=== PATIENT | female | born 1950 | race Caucasian/White ===

== ENCOUNTER 2017-07-29 13:39 | Outpatient (CLI) | payer OTHER ==
[~2017-07-29 13:39] MED LIST: ASA81 PO; FURO-149 PO; POTA20TA83 PO; SPIR25TA PO
== END 2017-07-29 17:13 | disposition home or self-care (01) ==
LOC: SMA 13:39
PROVIDERS: ATTEND Family Medicine
DX: Z12.31 Encounter for screening mammogram for malignant neoplasm of breast (principal)
CPT/HCPCS: G0202

== ENCOUNTER 2019-08-01 13:57 | Outpatient (CLI) | payer OTHER | END 2019-08-01 21:09 | disposition home or self-care (01) | LOC: SMA 13:57 | PROVIDERS: ATTEND Family Medicine | DX: Z12.31 Encounter for screening mammogram for malignant neoplasm of breast (principal) | CPT/HCPCS: 77067 ==

== ENCOUNTER → 2020-12-19 | Outpatient (CLI) | payer OTHER | END | disposition home or self-care (01) | LOC: SMA 10:00 | PROVIDERS: ATTEND Family Medicine | DX: Z12.31 Encounter for screening mammogram for malignant neoplasm of breast (principal) | CPT/HCPCS: 77067 ==

== ENCOUNTER 2020-12-20 10:38 | Outpatient (CLI) | payer OTHER | END 2020-12-20 20:57 | disposition home or self-care (01) | LOC: SUS 10:38 | DX: M79.662 Pain in left lower leg (principal) | CPT/HCPCS: 93971 ==

== ENCOUNTER 2021-07-27 01:38 | Emergency (ER) | payer OTHER, SELFPAY ==
[~2021-07-27] VITALS: Ht 160 cm; Wt 68.5 kg
[~2021-07-27 01:38] MED LIST changes: +CARV6.2554 PO; +SACU1TAB PO
[2021-07-27 01:45] VITALS: BP_SYST 121
[2021-07-27] MEDS ORDERED: ASPIRIN 81 MG TAB.CHEW PO ONE (02:15)
[2021-07-27] MEDS ORDERED: FUROSEMIDE 40 MG/4 ML VIAL IVP ONE (02:15)
[2021-07-27 14:28] LABS: BASOPHILS # (AUTO) 0.1 K/uL (0.0-0.2); BASOPHILS % (AUTO) 1.4 % (0.0-2.0); EOSINOPHILS # (AUTO) 0.3 K/uL (0.0-0.4); EOSINOPHILS % (AUTO) 5.3 % (0.0-4.0); HEMATOCRIT 33.3 % (36-48); HEMOGLOBIN 10.9 g/dL (12.0-16.0); LYMPHOCYTES # (AUTO) 1.3 K/uL (1.0-5.5); LYMPHOCYTES % (AUTO) 20.6 % (20.5-51.5); MEAN CORPUSCULAR HEMOGLOBIN 31 pg (27-31); MEAN CORPUSCULAR HGB CONC 33 % (32-36); MEAN CORPUSCULAR VOLUME 94 fL (79.0-98.0); MONOCYTES # (AUTO) 0.4 K/uL (0.0-1.0); MONOCYTES % (AUTO) 6.8 % (1.7-9.3); NEUTROPHILS % (AUTO) 65.9 % (40.0-70.0); PLATELET COUNT (AUTO) 177 K/uL (130-430); RED BLOOD CELL COUNT(AUTO) 3.53 MIL/uL (4.2-6.2); RED CELL DISTRIBUTION WIDTH 16.1 % (9.0-15.0); WHITE BLOOD COUNT (AUTO) 6.1 K/uL (4.8-10.8)
[2021-07-27 16:36] VITALS: BP_SYST 110
[2021-07-27 18:15] LABS: ANION GAP 13 (5-15); CALCIUM 8.4 mg/dL (8.4-11.0); CHLORIDE 109 mmol/L (98-107); GLUCOSE 103 mg/dL (70-99); POTASSIUM 4.4 mmol/L (3.5-5.1); SODIUM SERUM 144 mmol/L (136-145); TOTAL BILIRUBIN 0.6 mg/dL (0.0-1.0); UREA NITROGEN, BLOOD 29 mg/dL (8-21)
[2021-07-27 18:16] LABS: ALANINE AMINOTRANSFERASE 55 U/L (12-78); ALBUMIN 3.5 g/dL (3.4-4.8); ASPARTATE AMINOTRANSFERASE 50 U/L (10-37)
== END 2021-07-27 16:36 | disposition home or self-care (01) ==
LOC: SED 01:38 → UNDOADMIN 05:33 → STU 05:33 → SED 16:36
DX: I11.0 Hypertensive heart disease with heart failure (principal); I50.9 Heart failure, unspecified; J96.00 Acute respiratory failure, unspecified whether with hypoxia or hypercapnia; D64.9 Anemia, unspecified; R74.01 Elevation of levels of liver transaminase levels; R73.9 Hyperglycemia, unspecified; Z88.0 Allergy status to penicillin; Z88.5 Allergy status to narcotic agent; Z20.822 Contact with and (suspected) exposure to COVID-19
CPT/HCPCS: 36415; 71045; 80053; 83880; 84484; 85025; 87426; 93005; 96374; 99285; J1940

== ENCOUNTER 2021-08-02 11:12 | Emergency (ER) | payer OTHER, SELFPAY ==
[~2021-08-02] VITALS: Ht 160 cm; Wt 70.3 kg
[2021-08-02 11:12] VITALS: BP_SYST 103
--- NOTE | 2021-08-02 11:15 | NUR ---
Patient triaged and placed in waiting room. VSS and patient appears in no acute distress at this time. Accompanied by SELF, awaiting available bed, and MD notified of need for MSE.
--- NOTE | 2021-08-02 11:21 | NUR ---
PT STATES THAT WHILE TAKING OFF EYE MAKUP, SHE NOTICED A BROKEN BLOOD VESSEL IN RIGHT EYE, DENIES ANY PAIN. PT STATES THAT SHE WENT TO URGENT CARE AND WAS TOLD NO INFECTION AND DISCHARGED. PT HERE FOR SECOND OPINION, WAS NOT SATISFIED WITH URGENT CARE.
--- NOTE | 2021-08-02 11:34 | NUR ---
DR TAVARES AT BEDSIDE FOR EVALUATION
--- NOTE | 2021-08-02 11:44 | NUR ---
Patient given written and verbal discharge instructions and verbalizes understanding. ER MD discussed with patient the results and treatment provided. Patient in stable condition. ID arm band removed. Rx of NONE given. Patient educated on pain management and to follow up with PMD. Pain Scale 0/10. Opportunity for questions provided and answered. Medication side effect fact sheet provided.
== END 2021-08-02 11:44 | disposition home or self-care (01) ==
LOC: SED 11:12
DX: H11.31 Conjunctival hemorrhage, right eye (principal); I10 Essential (primary) hypertension; Z88.0 Allergy status to penicillin; Z88.5 Allergy status to narcotic agent; Z79.82 Long term (current) use of aspirin; Z79.899 Other long term (current) drug therapy
CPT/HCPCS: 99281

== ENCOUNTER 2021-10-28 12:57 | Outpatient (CLI) | payer OTHER ==
[~2021-10-28 12:57] MED LIST changes: +POTA-197 PO; -POTA20TA83 PO
== END 2021-10-28 20:45 | disposition home or self-care (01) ==
LOC: SRD 12:57
PROVIDERS: ATTEND Family Medicine
DX: I51.7 Cardiomegaly (principal); M41.85 Other forms of scoliosis, thoracolumbar region; I50.42 Chronic combined systolic (congestive) and diastolic (congestive) heart failure
CPT/HCPCS: 71046-TC

== ENCOUNTER 2021-12-21 17:26 | Inpatient (IN) | payer OTHER, SELFPAY ==
[~2021-12-21] VITALS: Ht 160 cm; Wt 68.0 kg
[2021-12-21 17:33] VITALS: BP_SYST 111
[2021-12-21 19:00] LABS: BASOPHILS # (AUTO) 0.1 K/uL (0.0-0.2); EOSINOPHILS # (AUTO) 0.2 K/uL (0.0-0.4); HEMOGLOBIN 11.3 g/dL (12.0-16.0); MONOCYTES # (AUTO) 0.3 K/uL (0.0-1.0); NEUTROPHILS % (AUTO) 65.3 % (40.0-70.0)
[2021-12-21 19:05] LABS: BASOPHILS % (AUTO) 1.1 % (0.0-2.0); LYMPHOCYTES % (AUTO) 22.3 % (20.5-51.5); MEAN CORPUSCULAR HEMOGLOBIN 31 pg (27-31); MEAN CORPUSCULAR HGB CONC 33 % (32-36); MEAN CORPUSCULAR VOLUME 92 fL (79.0-98.0); MONOCYTES % (AUTO) 7.3 % (1.7-9.3); NEUTROPHILS # (AUTO) 3.1 K/uL (1.8-7.7); RED BLOOD CELL COUNT(AUTO) 3.69 MIL/uL (4.2-6.2); RED CELL DISTRIBUTION WIDTH 16.2 % (9.0-15.0); WHITE BLOOD COUNT (AUTO) 4.7 K/uL (4.8-10.8)
[2021-12-21] MEDS ORDERED: FUROSEMIDE 40 MG/4 ML VIAL IVP ONE (19:15)
[2021-12-21 19:17] LABS: CHLORIDE 106 mmol/L (98-107); POTASSIUM 4.4 mmol/L (3.5-5.1); SODIUM SERUM 142 mmol/L (136-145)
[2021-12-21 19:22] LABS: INR 1.1 (0.8-1.2); PROTHROMBIN TIME 10.8 SECS (9.5-12.5)
[2021-12-21 19:28] LABS: ALANINE AMINOTRANSFERASE 37 U/L (12-78); ALBUMIN 3.8 g/dL (3.4-4.8); ANION GAP 12 (5-15); ASPARTATE AMINOTRANSFERASE 28 U/L (10-37); CALCIUM 8.8 mg/dL (8.4-11.0); CREATININE 0.83 mg/dL (0.55-1.30); GLUCOSE 98 mg/dL (70-99); TOTAL BILIRUBIN 1.2 mg/dL (0.0-1.0); UREA NITROGEN, BLOOD 29 mg/dL (8-21)
[2021-12-21] MEDS ORDERED: FURO-149 PO (19:35)
[2021-12-21 20:00] VITALS: BP_SYST 102
[2021-12-21 20:00] LABS: BILIRUBIN,URINE NEGATIVE (NEGATIVE); BLOOD, URINE 1+ (NEGATIVE); CLARITY/URINE CLEAR (CLEAR); COLOR,URINE YELLOW (YELLOW); GLUCOSE,URINE NEGATIVE (NEGATIVE); KETONES,URINE NEGATIVE (NEGATIVE); LEUKOCYTE ESTERASE ,URINE NEGATIVE (NEGATIVE); NITRITE, URINE NEGATIVE (NEGATIVE); PH,URINE 5.5 (5.0-8.0); PROTEIN URINE NEGATIVE (NEGATIVE); UROBILINOGEN,URINE 0.2 (0.2-1.0)
[2021-12-21 20:15] LABS: RBC,URINE 0-3 /HPF (0-3); WBC,URINE NONE SEEN /HPF (0-3)
[2021-12-21 20:16] LABS: BACTERIA,URINE RARE /HPF (None Seen)
[2021-12-21] MEDS: SACUBITRIL/VALSARTAN 24 MG-26 MG 1 TABLET PO SCH (21:00)
[2021-12-21] MEDS ORDERED: ZOLPIDEM TARTRATE 5 MG TABLET PO PRN (21:45)
[2021-12-21] MEDS ORDERED: ACETAMINOPHEN 325 MG TABLET PO PRN (21:45)
[2021-12-21] MEDS: CARVEDILOL 6.25 MG TABLET (COREG) PO SCH (21:47)
[2021-12-21 22:00] VITALS: BP_SYST 102
[2021-12-21 22:39] LABS: PLATELET COUNT (AUTO) 183 K/uL (130-430)
[2021-12-22 00:20] VITALS: BP_SYST 96
[2021-12-22 04:16] VITALS: BP_SYST 93
[2021-12-22 06:13] LABS: BASOPHILS # (AUTO) 0.1 K/uL (0.0-0.2); BASOPHILS % (AUTO) 1.8 % (0.0-2.0); EOSINOPHILS # (AUTO) 0.3 K/uL (0.0-0.4); EOSINOPHILS % (AUTO) 6.1 % (0.0-4.0); HEMATOCRIT 34.7 % (36-48); HEMOGLOBIN 11.4 g/dL (12.0-16.0); LYMPHOCYTES # (AUTO) 1.5 K/uL (1.0-5.5); MEAN CORPUSCULAR HEMOGLOBIN 30 pg (27-31); MEAN CORPUSCULAR HGB CONC 33 % (32-36); MEAN CORPUSCULAR VOLUME 93 fL (79.0-98.0); MONOCYTES # (AUTO) 0.4 K/uL (0.0-1.0); NEUTROPHILS # (AUTO) 2.6 K/uL (1.8-7.7); NEUTROPHILS % (AUTO) 53.1 % (40.0-70.0); PLATELET COUNT (AUTO) 178 K/uL (130-430); RED BLOOD CELL COUNT(AUTO) 3.76 MIL/uL (4.2-6.2); WHITE BLOOD COUNT (AUTO) 4.9 K/uL (4.8-10.8)
[2021-12-22 08:36] LABS: ANION GAP 9 (5-15); CALCIUM 8.3 mg/dL (8.4-11.0); CHLORIDE 105 mmol/L (98-107); GLUCOSE 102 mg/dL (70-99); POTASSIUM 3.9 mmol/L (3.5-5.1); SODIUM SERUM 140 mmol/L (136-145); UREA NITROGEN, BLOOD 26 mg/dL (8-21)
[2021-12-22] MEDS: FUROSEMIDE 40 MG/4 ML VIAL IVP SCH (09:00)
[2021-12-22] MEDS: SACUBITRIL/VALSARTAN 24 MG-26 MG 1 TABLET PO SCH ×2 (09:00→21:07)
[2021-12-22] MEDS ORDERED: FUROSEMIDE 40 MG TABLET PO SCH (09:00)
[2021-12-22 09:01] VITALS: BP_SYST 95
[2021-12-22] MEDS: CARVEDILOL 6.25 MG TABLET (COREG) PO SCH ×2 (09:01→21:00)
[2021-12-22] MEDS: ASPIRIN 81 MG TAB.CHEW PO SCH (09:01)
[2021-12-22] MEDS: POTASSIUM CHLORIDE 20 MEQ TAB.PRT.SR PO SCH (09:01)
[2021-12-22] MEDS: SPIRONOLACTONE 25 MG TABLET (ALDACTONE) PO SCH (09:01)
[2021-12-22 11:39] VITALS: BP_SYST 90
[2021-12-22 15:27] VITALS: BP_SYST 92
[2021-12-22 20:00] VITALS: BP_SYST 99
[2021-12-22] MEDS ORDERED: ENOXAPARIN SODIUM 40 MG/0.4 ML SYRINGE SUBCUT SCH (21:00)
[2021-12-23 00:34] VITALS: BP_SYST 90
[2021-12-23 07:06] LABS: ALANINE AMINOTRANSFERASE 32 U/L (12-78); ALBUMIN 3.5 g/dL (3.4-4.8); ANION GAP 8 (5-15); ASPARTATE AMINOTRANSFERASE 20 U/L (10-37); CALCIUM 8.8 mg/dL (8.4-11.0); CHLORIDE 106 mmol/L (98-107); GLUCOSE 92 mg/dL (70-99); POTASSIUM 4.1 mmol/L (3.5-5.1); SODIUM SERUM 141 mmol/L (136-145); UREA NITROGEN, BLOOD 29 mg/dL (8-21)
[2021-12-23 07:40] LABS: HEMATOCRIT 33.4 % (36-48); MEAN CORPUSCULAR HEMOGLOBIN 30 pg (27-31); MEAN CORPUSCULAR HGB CONC 33 % (32-36); MEAN CORPUSCULAR VOLUME 92 fL (79.0-98.0); PLATELET COUNT (AUTO) 173 K/uL (130-430); RED BLOOD CELL COUNT(AUTO) 3.65 MIL/uL (4.2-6.2); RED CELL DISTRIBUTION WIDTH 16.1 % (9.0-15.0); WHITE BLOOD COUNT (AUTO) 3.9 K/uL (4.8-10.8)
[2021-12-23 08:00] VITALS: BP_SYST 104
[2021-12-23] MEDS: ASPIRIN 81 MG TAB.CHEW PO SCH (08:49)
[2021-12-23] MEDS: POTASSIUM CHLORIDE 20 MEQ TAB.PRT.SR PO SCH (08:50)
[2021-12-23] MEDS: CARVEDILOL 6.25 MG TABLET (COREG) PO SCH (08:50)
[2021-12-23] MEDS: SPIRONOLACTONE 25 MG TABLET (ALDACTONE) PO SCH (08:50)
[2021-12-23] MEDS: FUROSEMIDE 40 MG/4 ML VIAL IVP SCH (08:51)
[2021-12-23 12:08] VITALS: BP_SYST 100
[2021-12-23] MEDS: SACUBITRIL/VALSARTAN 24 MG-26 MG 1 TABLET PO SCH (12:09)
[2021-12-23 15:30] LABS: BASOPHILS % (MANUAL) 0 % (0-2); EOSINOPHILS % (MANUAL) 6 % (0-7); LYMPHOCYTES % (MANUAL) 32 % (20-46); MONOCYTES % (MANUAL) 12 % (0-11)
[2021-12-23] MEDS ORDERED: FURO10VI27 IVP (15:32)
[2021-12-23 16:00] VITALS: BP_SYST 96
[2021-12-23 16:56] VITALS: BP_SYST 96
== END 2021-12-23 17:37 | disposition home or self-care (01) | DRG 291 ==
LOC: SED 17:26 → STU 19:48
PROVIDERS: ADMIT Internal Medicine; ATTEND Internal Medicine
DX: I11.0 Hypertensive heart disease with heart failure (principal); I50.43 Acute on chronic combined systolic (congestive) and diastolic (congestive) heart failure; D64.9 Anemia, unspecified; I42.0 Dilated cardiomyopathy; M41.9 Scoliosis, unspecified; Z20.822 Contact with and (suspected) exposure to COVID-19; E78.2 Mixed hyperlipidemia; I44.7 Left bundle-branch block, unspecified; Z91.14 Patient's other noncompliance with medication regimen; Z79.82 Long term (current) use of aspirin; Z79.899 Other long term (current) drug therapy; Z88.0 Allergy status to penicillin; Z88.5 Allergy status to narcotic agent
CPT/HCPCS: 36415; 71045; 80048; 80053; 81000; 83605; 83735; 83880; 84484; 85007; 85025; 85027; 85379; 85610-TC; 85730-TC; 87040; 93005; 93970; 96374; 99285; G0378; J1650; J1940

== ENCOUNTER 2022-02-11 06:32 | Inpatient (IN) | payer OTHER ==
[~2022-02-11] VITALS: Ht 160 cm; Wt 67.1 kg
[2022-02-11 06:44] VITALS: BP_SYST 100
--- NOTE | 2022-02-11 07:18 | NUR ---
BROUGHT BACK TO BED #3 AND REPORT GIVEN TO BRIAN
--- NOTE | 2022-02-11 07:35 | NUR ---
RECEIVED PT IN BED #3, PT IS IN NAD, VSS, AAOx3, SOME MILD DIFFICULTY BREATHING, HX OF CHF, IMPROVED SINCE WAITING. PT TO BE FURTHER ASSESSED BY ED MD FOR PLAN OF CARE WITH DISPOSITION.
--- NOTE | 2022-02-11 07:40 | NUR ---
ED MD NDIAYE AT BEDSIDE
[2022-02-11 08:33] LABS: BASOPHILS # (AUTO) 0.1 K/uL (0.0-0.2); EOSINOPHILS # (AUTO) 0.2 K/uL (0.0-0.4); EOSINOPHILS % (AUTO) 2.7 % (0.0-4.0); HEMATOCRIT 33.8 % (36-48); HEMOGLOBIN 11.1 g/dL (12.0-16.0); LYMPHOCYTES # (AUTO) 0.7 K/uL (1.0-5.5); LYMPHOCYTES % (AUTO) 11.9 % (20.5-51.5); MEAN CORPUSCULAR HEMOGLOBIN 30 pg (27-31); MEAN CORPUSCULAR HGB CONC 33 % (32-36); MEAN CORPUSCULAR VOLUME 92 fL (79.0-98.0); MONOCYTES # (AUTO) 0.3 K/uL (0.0-1.0); MONOCYTES % (AUTO) 5.5 % (1.7-9.3); NEUTROPHILS # (AUTO) 4.8 K/uL (1.8-7.7); NEUTROPHILS % (AUTO) 77.9 % (40.0-70.0); PLATELET COUNT (AUTO) 198 K/uL (130-430); RED BLOOD CELL COUNT(AUTO) 3.66 MIL/uL (4.2-6.2); RED CELL DISTRIBUTION WIDTH 15.8 % (9.0-15.0); WHITE BLOOD COUNT (AUTO) 6.2 K/uL (4.8-10.8)
[2022-02-11 08:33] LABS: BILIRUBIN,URINE NEGATIVE (NEGATIVE); BLOOD, URINE 2+ (NEGATIVE); CLARITY/URINE CLEAR (CLEAR); COLOR,URINE YELLOW (YELLOW); GLUCOSE,URINE NEGATIVE (NEGATIVE); KETONES,URINE NEGATIVE (NEGATIVE); LEUKOCYTE ESTERASE ,URINE TRACE (NEGATIVE); NITRITE, URINE NEGATIVE (NEGATIVE); PROTEIN URINE 1+ (NEGATIVE); UROBILINOGEN,URINE 0.2 (0.2-1.0)
[2022-02-11 08:45] LABS: BACTERIA,URINE FEW /HPF (None Seen); RBC,URINE 0-3 /HPF (0-3)
[2022-02-11 08:46] LABS: MUCUS,URINE 1+ /LPF (None Seen)
[2022-02-11 08:47] LABS: ANION GAP 11 (5-15); CALCIUM 8.3 mg/dL (8.4-11.0); CHLORIDE 105 mmol/L (98-107); CREATININE 1.08 mg/dL (0.55-1.30); GLUCOSE 100 mg/dL (70-99); POTASSIUM 4.2 mmol/L (3.5-5.1); SODIUM SERUM 139 mmol/L (136-145); UREA NITROGEN, BLOOD 33 mg/dL (8-21)
[2022-02-11 08:50] LABS: PROTHROMBIN TIME 10.4 SECS (9.5-12.5)
[2022-02-11 08:55] LABS: ALANINE AMINOTRANSFERASE 38 U/L (12-78); ALBUMIN 3.5 g/dL (3.4-4.8); ASPARTATE AMINOTRANSFERASE 30 U/L (10-37)
[2022-02-11] MEDS ORDERED: cefTRIAXone 1 GM in D5W 50 ML IV ONE (09:00)
[2022-02-11] MEDS ORDERED: AZITHROMYCIN 500 MG in NS 250 ML IV ONE (09:00)
--- NOTE | 2022-02-11 09:04 | NUR ---
Critical lab value reported of Troponin 53, Dr. Gonzalez made aware. No new orders at this time.
--- NOTE | 2022-02-11 09:15 | NUR ---
Critical Lab value reported D-dimer 708. Dr. Gonzalez made aware.
[2022-02-11] MEDS ORDERED: cefTRIAXone 1 GM VIAL ONE (09:21)
[2022-02-11] MEDS ORDERED: AZITHROMYCIN 500 MG/VIAL (ZITHROMAX) IV ONE (09:22)
[2022-02-11] MEDS ORDERED: ASPIRIN 325 MG TABLET (ECOTRIN) PO ONE (09:30)
[2022-02-11] MEDS ORDERED: FUROSEMIDE 100 MG/10 ML VIAL IVP ONE (09:30)
[2022-02-11] MEDS ORDERED: methylPREDNISolone SOD SUCC/PF 62.5 MG/ML VIAL IVP ONE (10:00)
[2022-02-11] MEDS ORDERED: DIPHENHYDRAMINE INJ 50 MG/ML VIAL IVP ONE (10:00)
[2022-02-11] MEDS ORDERED: DIPHENHYDRAMINE INJ 50 MG/ML VIAL ONE (10:06)
[2022-02-11] MEDS ORDERED: ASPIRIN 81 MG TABLET(ECOTRIN) PO ONE (10:45)
--- NOTE | 2022-02-11 10:55 | NUR ---
Admit bed requested Patient will be admitted to care of Dr. SUGGS. Admitted to TELE unit. Diagnosis CHF EXACERBATION Inpatient (Yes or No) Y Observation (Yes or No) N Orientation concerns or request close to nursing station (Yes or No) N Covid Status N On vent or bipap N Isolation requirements N Needs a sitter N From Home (Yes or if No enter name of facility) Y Requires Dialysis (Yes or No) N Med Rec Completed (Yes of No) Y
--- NOTE | 2022-02-11 11:26 | NUR ---
Patient will be admitted to care of Dr. SUGGS. Admitted to TELE unit. Will go to room 119 A. Belongings list completed. Complete and up to date summary report printed. SBAR report to be given at bedside with opportunity for questions.
[2022-02-11] MEDS ORDERED: POTASSIUM CHLORIDE 20 MEQ TAB.PRT.SR PO ONE (12:00)
[2022-02-11] MEDS ORDERED: CARVEDILOL 6.25 MG TABLET (COREG) PO ONE (12:00)
--- NOTE | 2022-02-11 12:20 | NUR ---
CONSULT CARDIOLOGY CHF DR HART [phone] S/W DAVE DINH
[2022-02-11 15:30] VITALS: BP_SYST 105
[2022-02-11] MEDS ORDERED: ALBUTEROL SULFATE 0.083% 2.5 MG/3 ML VIAL.NEB INH PRN (16:45)
[2022-02-11] MEDS ORDERED: ACETAMINOPHEN 325 MG TABLET PO PRN (16:45)
[2022-02-11 16:55] VITALS: BP_SYST 97
[2022-02-11] MEDS: CARVEDILOL 6.25 MG TABLET (COREG) PO SCH (21:00)
[2022-02-11] MEDS: SACUBITRIL/VALSARTAN 24 MG-26 MG 1 TABLET PO SCH (21:00)
[2022-02-12 00:50] VITALS: BP_SYST 81
[2022-02-12 01:45] VITALS: BP_SYST 93
[2022-02-12 06:43] LABS: BASOPHILS % (AUTO) 0.4 % (0.0-2.0); EOSINOPHILS % (AUTO) 0.1 % (0.0-4.0); HEMATOCRIT 30.9 % (36-48); HEMOGLOBIN 10.3 g/dL (12.0-16.0); LYMPHOCYTES # (AUTO) 0.5 K/uL (1.0-5.5); LYMPHOCYTES % (AUTO) 8.9 % (20.5-51.5); MEAN CORPUSCULAR HEMOGLOBIN 31 pg (27-31); MEAN CORPUSCULAR HGB CONC 33 % (32-36); MEAN CORPUSCULAR VOLUME 92 fL (79.0-98.0); MONOCYTES # (AUTO) 0.5 K/uL (0.0-1.0); NEUTROPHILS # (AUTO) 4.9 K/uL (1.8-7.7); NEUTROPHILS % (AUTO) 82.6 % (40.0-70.0); PLATELET COUNT (AUTO) 190 K/uL (130-430); RED BLOOD CELL COUNT(AUTO) 3.36 MIL/uL (4.2-6.2); RED CELL DISTRIBUTION WIDTH 15.3 % (9.0-15.0)
[2022-02-12 07:04] LABS: ANION GAP 10 (5-15); CALCIUM 7.9 mg/dL (8.4-11.0); CHLORIDE 108 mmol/L (98-107); CREATININE 0.94 mg/dL (0.55-1.30); GLUCOSE 102 mg/dL (70-99); POTASSIUM 4.3 mmol/L (3.5-5.1); SODIUM SERUM 140 mmol/L (136-145); UREA NITROGEN, BLOOD 34 mg/dL (8-21)
[2022-02-12 07:09] LABS: ALANINE AMINOTRANSFERASE 23 U/L (12-78); ALBUMIN 2.7 g/dL (3.4-4.8); ASPARTATE AMINOTRANSFERASE 18 U/L (10-37); PHOSPHORUS 4.6 mg/dL (2.7-4.5); TOTAL BILIRUBIN 0.9 mg/dL (0.0-1.0)
--- NOTE | 2022-02-12 08:00 | NUR ---
OPEN NOTE; PT IN BED WITH NO COMPLAINTS. PT AM VSS, PT 98/64 WHICH IS HER BASELINE PER PT. AAOx3, WITH NO DIFFICULTY BREATHING. SAFETY PRECAUTION IN PLACE.
[2022-02-12] MEDS ORDERED: FUROSEMIDE 40 MG TABLET PO SCH (09:00)
[2022-02-12] MEDS ORDERED: POTASSIUM CHLORIDE 20 MEQ TAB.PRT.SR PO SCH (09:00)
[2022-02-12] MEDS ORDERED: SPIRONOLACTONE 25 MG TABLET (ALDACTONE) PO SCH (09:00)
[2022-02-12] MEDS ORDERED: ASPIRIN 81 MG TAB.CHEW PO SCH (09:00)
[2022-02-12] MEDS: SACUBITRIL/VALSARTAN 24 MG-26 MG 1 TABLET PO SCH (09:21)
[2022-02-12] MEDS: CARVEDILOL 6.25 MG TABLET (COREG) PO SCH (09:26)
[2022-02-12] MEDS ORDERED: MULT-999 PO (11:46)
[2022-02-12] MEDS ORDERED: CYAN500T47 PO (11:46)
[2022-02-12 11:59] VITALS: BP_SYST 98
[2022-02-12] MEDS ORDERED: CYANOCOBALAMIN 1000 mCg TABLET PO ONE (12:00)
[2022-02-12 12:41] VITALS: BP_SYST 96
--- NOTE | 2022-02-12 13:50 | NUR ---
PATIENT WANT TO DISCHARGE PT REQUEST TO D/C MD WILL BE CALLED AND FAMILY IS ALREADY AT THE BEDSIDE TO TRANSPORT PT HOME.
--- NOTE | 2022-02-12 14:02 | NUR ---
ATTENDING MD DR SUGGS WAS CALLED RE: DISCHARGE ORDER. SPOKE TO JEANE.
--- NOTE | 2022-02-12 14:38 | NUR ---
Discharge Planning: DCP faxed pt referral to [facility] P#[phone] F#[phone] DCP to follow up. Addendum: 02/12/22 at 1528 by Sally Louis DP DCP confirmed with Susi [facility] will resume [facility] P#[phone]
[2022-02-12 14:52] VITALS: BP_SYST 98
[2022-02-12 15:30] VITALS: BP_SYST 91
--- NOTE | 2022-02-12 16:00 | NUR ---
DISCHARGE NOTE PT D/C WITH V/S WNL AND IV REMOVED FORM RIGHT F/A. PT HAS F/U APPT WITH DR KULKARNI AND DR NEUMANN ON 02/18 AND 02/25/22. PT VERBALIZED UNDERSTANDING OF ALL D/C INSTRUCTION, F/U AND MEDICATIONS. PT HAD MR MATUTE [phone] PT HOME.
[2022-02-12] MEDS ORDERED: LEVOFLOXACIN 250 MG/D5W 50 ML IV SCH (20:00)
[2022-02-13] MEDS ORDERED: CYANOCOBALAMIN 1000 mCg TABLET PO SCH (09:00)
== END 2022-02-12 16:00 | disposition home health service (06) | DRG 291 ==
LOC: SED 06:32 → STU 10:28
PROVIDERS: ADMIT Internal Medicine; ATTEND Internal Medicine
DX: I11.0 Hypertensive heart disease with heart failure (principal); I50.43 Acute on chronic combined systolic (congestive) and diastolic (congestive) heart failure; E44.0 Moderate protein-calorie malnutrition; I24.8 Other forms of acute ischemic heart disease; I42.0 Dilated cardiomyopathy; I42.8 Other cardiomyopathies; J20.9 Acute bronchitis, unspecified; M41.9 Scoliosis, unspecified; E78.2 Mixed hyperlipidemia; I87.8 Other specified disorders of veins; I83.90 Asymptomatic varicose veins of unspecified lower extremity; Z20.822 Contact with and (suspected) exposure to COVID-19; Z91.14 Patient's other noncompliance with medication regimen; Z91.11 Patient's noncompliance with dietary regimen; Z88.5 Allergy status to narcotic agent; Z88.0 Allergy status to penicillin; Z88.8 Allergy status to other drugs, medicaments and biological substances; Z79.899 Other long term (current) drug therapy; Z79.82 Long term (current) use of aspirin
CPT/HCPCS: 36415; 71045; 71275; 76376; 80053; 81000; 83605; 83735; 83880; 84100; 84484; 85025; 85379; 85610-TC; 85730-TC; 87040; 87081; 87086; 93005; 96374; 96375; 99291; G0378; J0456; J0696; J1200; J1940; J1956; J2930; Q9967

== ENCOUNTER 2022-04-26 14:58 | Inpatient (IN) | payer OTHER ==
[~2022-04-26] VITALS: Ht 177.8 cm; Wt 67.2 kg
[~2022-04-26 14:58] MED LIST changes: +CYAN500T47 PO; +MULT-999 PO
--- NOTE | 2022-04-26 15:12 | NUR ---
Swabbed for COVID & INFLUENZA, sent to lab.
[2022-04-26 15:16] VITALS: BP_SYST 93
--- NOTE | 2022-04-26 15:24 | NUR ---
Placed in room 05 . Placed on monitor technician, blood pressure machine and pulse oximeter. To gown for exam. Side rails up.
[2022-04-26] MEDS ORDERED: ALBUTEROL SULFATE 0.083% 2.5 MG/3 ML VIAL.NEB INH ONE (16:30)
[2022-04-26 17:11] LABS: BASOPHILS # (AUTO) 0.1 K/uL (0.0-0.2); BASOPHILS % (AUTO) 1.2 % (0.0-2.0); EOSINOPHILS % (AUTO) 0.4 % (0.0-4.0); HEMATOCRIT 32.4 % (36-48); HEMOGLOBIN 10.8 g/dL (12.0-16.0); LYMPHOCYTES # (AUTO) 0.6 K/uL (1.0-5.5); LYMPHOCYTES % (AUTO) 13.5 % (20.5-51.5); MEAN CORPUSCULAR HEMOGLOBIN 30 pg (27-31); MEAN CORPUSCULAR HGB CONC 33 % (32-36); MEAN CORPUSCULAR VOLUME 89 fL (79.0-98.0); MONOCYTES # (AUTO) 0.4 K/uL (0.0-1.0); MONOCYTES % (AUTO) 9.6 % (1.7-9.3); NEUTROPHILS # (AUTO) 3.5 K/uL (1.8-7.7); NEUTROPHILS % (AUTO) 75.3 % (40.0-70.0); RED BLOOD CELL COUNT(AUTO) 3.64 MIL/uL (4.2-6.2); RED CELL DISTRIBUTION WIDTH 15.6 % (9.0-15.0); WHITE BLOOD COUNT (AUTO) 4.7 K/uL (4.8-10.8)
[2022-04-26 17:34] LABS: PLATELET COUNT (AUTO) 178 K/uL (130-430)
[2022-04-26 17:38] LABS: INR 1.1 (0.8-1.2); PROTHROMBIN TIME 10.8 SECS (9.5-12.5)
[2022-04-26 17:47] LABS: ANION GAP 12 (5-15); CALCIUM 8.5 mg/dL (8.4-11.0); CHLORIDE 99 mmol/L (98-107); CREATININE 1.39 mg/dL (0.55-1.30); GLUCOSE 120 mg/dL (70-99); POTASSIUM 5.1 mmol/L (3.5-5.1); SODIUM SERUM 137 mmol/L (136-145); UREA NITROGEN, BLOOD 48 mg/dL (8-21)
[2022-04-26 17:55] LABS: ALANINE AMINOTRANSFERASE 25 U/L (12-78); ALBUMIN 3.5 g/dL (3.4-4.8); ASPARTATE AMINOTRANSFERASE 30 U/L (10-37); TOTAL BILIRUBIN 1.2 mg/dL (0.0-1.0)
[2022-04-26] MEDS ORDERED: ASPIRIN 325 MG TABLET PO ONE (18:15)
[2022-04-26] MEDS ORDERED: iohexoL 350 mgI/mL, 100 ML INFUS..BTL IV ONE (18:43)
[2022-04-26] MEDS ORDERED: LORazepam 2 MG/ML VIAL IVP ONE (20:15)
--- NOTE | 2022-04-26 20:50 | NUR ---
lab at bedside
[2022-04-26] MEDS ORDERED: ACETAMINOPHEN 325 MG TABLET PO PRN (21:15)
[2022-04-26] MEDS ORDERED: ONDANSETRON HCL 4 MG/2 ML VIAL IVP PRN (21:15)
[2022-04-26] MEDS ORDERED: NITROGLYCERIN 0.4 MG TAB.SUBL SL ONE (21:15)
--- NOTE | 2022-04-26 22:02 | NUR ---
Called [facility] for admission.
--- NOTE | 2022-04-26 22:20 | NUR ---
Note jyotiwilbert in EDM - 04/26/22 at 2248 by MONSE Admit bed requested Patient will be admitted to care of [LIDIA]. Admitted to [MED SURG] unit. Diagnosis [PHARYNGITIS] Inpatient (Yes or No) [YES] Observation (Yes or No) [NO] Orientation concerns or request close to nursing station (Yes or No) [NO] Covid Status [NEG] On vent or bipap [NO] Isolation requirements [NO] Needs a sitter [NO] From Home (Yes or if No enter name of facility) [NO] Requires Dialysis (Yes or No) [NO] Med Rec Completed (Yes of No) [YES]
--- NOTE | 2022-04-26 22:46 | NUR ---
NITROSTAT NOT GIVEN , BP 98/49 MAP69 Addendum: 04/26/22 at 2247 by [email or web address] NITRO STAT ORDERED FOR 2129 WAS NOT ADMINISTERED, BP98/
--- NOTE | 2022-04-26 23:35 | NUR ---
Patient refused her medications as ordered, therefore Aspirin, and Ativan were not administered as ordered, patient denies pain and presently resting quitely in bed with eyes closed, will continue to monitor.
[2022-04-27 00:15] VITALS: BP_SYST 96
[2022-04-27 00:37] VITALS: BP_SYST 96
--- NOTE | 2022-04-27 01:53 | NUR ---
Consultation Paged Reason for Consultation: NSTEMI Was consult called: Y Person who was notified: Linda Consulting Physician: Dr. Delarosa Ordering Physician: Dr. Carey
[2022-04-27] MEDS ORDERED: SIMETHICONE 40 MG/0.6 ML ML ONE (07:38)
[2022-04-27] MEDS ORDERED: MEPERIDINE 100 MG INJ. 100 MG/ML VIAL ONE (07:39)
[2022-04-27] MEDS ORDERED: MIDAZOLAM HCL 5 MG/5 ML VIAL ONE (07:39)
[2022-04-27] MEDS ORDERED: GLYCOPYRROLATE 0.2 MG/ML VIAL ONE (07:40)
[2022-04-27 08:00] VITALS: BP_SYST 108
--- NOTE | 2022-04-27 08:50 | NUR ---
CONSULTATION PAGED/CALLED Reason for Consultation: [] CHF Person Who was Notified: [] JEAN CLAUDE Consulting Physician: [] DR Chery HUNTER Dolphin Researcher Specialty: [] FAMILY MD, HOSPITALIST Ordering Physician: [] DR HART
[2022-04-27] MEDS ORDERED: CARVEDILOL 3.125 MG TABLET (COREG) PO SCH (09:00)
[2022-04-27] MEDS ORDERED: FUROSEMIDE 40 MG TABLET PO SCH (09:00)
[2022-04-27] MEDS ORDERED: ASPIRIN 81 MG TAB.CHEW PO SCH (09:00)
[2022-04-27] MEDS ORDERED: SPIRONOLACTONE 25 MG TABLET (ALDACTONE) PO SCH (09:00)
[2022-04-27] MEDS ORDERED: POTASSIUM CHLORIDE 20 MEQ TAB.PRT.SR PO SCH (09:00)
[2022-04-27] MEDS ORDERED: SACUBITRIL/VALSARTAN 24 MG-26 MG 1 TABLET PO SCH (09:00)
[2022-04-27] MEDS ORDERED: AZITHROMYCIN 250 MG in NS 250 ML IV SCH (10:00)
[2022-04-27] MEDS ORDERED: METO2.5T6 PO (10:28)
[2022-04-27] MEDS ORDERED: metOLazone 2.5 MG TABLET PO ONE (11:15)
[2022-04-27 12:00] VITALS: BP_SYST 110
--- NOTE | 2022-04-27 12:00 | NUR ---
Priscila Barnett is ok to DC per Dr. Delarosa guest specialist
[2022-04-27 13:20] VITALS: BP_SYST 108
--- NOTE | 2022-04-27 14:45 | NUR ---
Miss Jorgensen has been assessed as indicated. She has been noted to be both pleasant and cooperative. She does malloy ve a moist productive cough she manages her secretions well. She continues to deny pain. She is being DC to home at this time. IV access has been removed. heart monitor has been removed. She remains in the street clothes she came to the hospital in. DC instructions have been reviewed. She expresses that she understood the instructions there are no new medications that she will need to retrieve. At the time of DC she was compliant with the plan to DC home. She is driven home her boyfriend. She was escorted to the front door via WC with this report writer
--- NOTE | 2022-04-27 16:31 | NUR ---
Dr albrecht has called the nurses station. He states that he will call in a RX to [facility] for an antibiotic for Miss Barnett.She was made aware of this at [phone]. she expressed her appreciation and disconnected the call.
--- NOTE | 2022-04-28 08:15 | NUR ---
Dispo code 01
[2022-04-28] MEDS ORDERED: metOLazone 2.5 MG TABLET PO SCH (09:00)
== END 2022-04-27 14:45 | disposition home or self-care (01) | DRG 202 ==
LOC: SED 14:58 → STU 21:10
PROVIDERS: ADMIT Internal Medicine Cardiovascular Disease; ATTEND Internal Medicine Cardiovascular Disease
DX: J20.9 Acute bronchitis, unspecified (principal); I42.0 Dilated cardiomyopathy; I50.40 Unspecified combined systolic (congestive) and diastolic (congestive) heart failure; I11.0 Hypertensive heart disease with heart failure; I25.5 Ischemic cardiomyopathy; Z20.822 Contact with and (suspected) exposure to COVID-19; E11.9 Type 2 diabetes mellitus without complications; E78.2 Mixed hyperlipidemia; I34.0 Nonrheumatic mitral (valve) insufficiency; I95.89 Other hypotension; J06.9 Acute upper respiratory infection, unspecified; Z79.899 Other long term (current) drug therapy
CPT/HCPCS: 36415; 71275; 76376; 80053; 83605; 84484; 85025; 85379; 85610-TC; 85730-TC; 86140; 87040; 93005; 93970; 94640; 99285; G0378; J0456; J2175; J2250; J3490; J7050; J7613; Q9967

== ENCOUNTER 2022-07-02 00:05 | Inpatient (IN) | payer OTHER ==
[~2022-07-02] VITALS: Ht 160 cm; Wt 77.3 kg
[~2022-07-02 00:05] MED LIST changes: +METO2.5T6 PO
--- NOTE | 2022-07-02 00:10 | NUR ---
Dr. Perez at bedside.
[2022-07-02 00:16] VITALS: BP_SYST 100
--- NOTE | 2022-07-02 00:19 | NUR ---
PATIENT BROUGHT TO ROOM 6 AND PLACED ON MONITOR, REPORT GIVEN TO PALLAVI FONSECA. PER PATIENT, STARTED HAVING INCREASE WOB AND SHORTNESS OF BREATH. WAS 99% ON RA. HISTORY OF CHF.
--- NOTE | 2022-07-02 00:19 | NUR ---
Pt report received. Pt c/o SOB x 1 week, worsening tonight. Pt exhibiting SOB with labored respirations, SPO2 94% RA. Pt placed on O2 at 4 LPM/NC and SPO2 improves to 98%.
--- NOTE | 2022-07-02 00:35 | NUR ---
# 20 gauge angiocath placed to RFA. Use of asceptic technique. Opsite placed over site. Blood return noted. Blood for lab drawn from site. Flushed with 10 cc of normal saline. No evidence of infiltration noted. Patient tolerated well.
[2022-07-02 01:10] LABS: BASOPHILS # (AUTO) 0.2 K/uL (0.0-0.2); BASOPHILS % (AUTO) 2.4 % (0.0-2.0); EOSINOPHILS # (AUTO) 0.1 K/uL (0.0-0.4); EOSINOPHILS % (AUTO) 1.7 % (0.0-4.0); HEMATOCRIT 34.1 % (36-48); HEMOGLOBIN 11.1 g/dL (12.0-16.0); LYMPHOCYTES # (AUTO) 1.3 K/uL (1.0-5.5); LYMPHOCYTES % (AUTO) 19.9 % (20.5-51.5); MEAN CORPUSCULAR HEMOGLOBIN 29 pg (27-31); MEAN CORPUSCULAR HGB CONC 33 % (32-36); MEAN CORPUSCULAR VOLUME 88 fL (79.0-98.0); MONOCYTES # (AUTO) 0.5 K/uL (0.0-1.0); MONOCYTES % (AUTO) 7.9 % (1.7-9.3); NEUTROPHILS # (AUTO) 4.5 K/uL (1.8-7.7); NEUTROPHILS % (AUTO) 68.1 % (40.0-70.0); PLATELET COUNT (AUTO) 252 K/uL (130-430); RED BLOOD CELL COUNT(AUTO) 3.86 MIL/uL (4.2-6.2); RED CELL DISTRIBUTION WIDTH 18.3 % (9.0-15.0); WHITE BLOOD COUNT (AUTO) 6.6 K/uL (4.8-10.8)
--- NOTE | 2022-07-02 01:10 | NUR ---
Pt in tripod position, tachypneic, diaphoretic, SPO2 92% on O2 at 4 LPM/NC. Dr. Perez notified. RT called for BiPAP.
[2022-07-02 01:14] LABS: ANION GAP 13 (5-15); CALCIUM 8.9 mg/dL (8.4-11.0); CHLORIDE 102 mmol/L (98-107); CREATININE 1.46 mg/dL (0.55-1.30); GLUCOSE 162 mg/dL (70-99); POTASSIUM 5.7 mmol/L (3.5-5.1); UREA NITROGEN, BLOOD 41 mg/dL (8-21)
[2022-07-02] MEDS ORDERED: FUROSEMIDE 40 MG/4 ML VIAL IVP ONE (01:15)
--- NOTE | 2022-07-02 01:20 | NUR ---
RT at bedside to place pt on BiPAP with settings of 12/5 rate 20 and 100% FiO2. SPO2 increases to 96%. Improvement noted to respirations.
[2022-07-02 01:26] LABS: ALANINE AMINOTRANSFERASE 43 U/L (12-78); ALBUMIN 3.4 g/dL (3.4-4.8); ASPARTATE AMINOTRANSFERASE 36 U/L (10-37); TOTAL BILIRUBIN 1.4 mg/dL (0.0-1.0)
--- NOTE | 2022-07-02 01:28 | NUR ---
Improvement noted to respirations and pt no longer in tripod position. SPO2 100%. RT at bedside and FiO2 decreased to 90%.
--- NOTE | 2022-07-02 02:42 | NUR ---
BIPAP STOPPED PER MD REQUEST BY RT.
--- NOTE | 2022-07-02 02:46 | NUR ---
# 16 FR Muhammad catheter with use of sterile technique. Immediate return of cc urine noted. Bedside drainage bag placed below level of bladder. Urine sample collected and sent to lab. Pt tolerated procedure . Patient arrived with muhammad in place, changed due to standard of practice prior to admission. Patient unable to toilet self.
[2022-07-02 03:20] LABS: BILIRUBIN,URINE NEGATIVE (NEGATIVE); COLOR,URINE YELLOW (YELLOW); GLUCOSE,URINE NEGATIVE (NEGATIVE); KETONES,URINE NEGATIVE (NEGATIVE); LEUKOCYTE ESTERASE ,URINE NEGATIVE (NEGATIVE); NITRITE, URINE NEGATIVE (NEGATIVE); PROTEIN URINE 1+ (NEGATIVE); UROBILINOGEN,URINE 0.2 (0.2-1.0)
[2022-07-02 03:21] LABS: BLOOD, URINE TRACE (NEGATIVE); CLARITY/URINE HAZY (CLEAR)
[2022-07-02 03:36] LABS: BACTERIA,URINE RARE /HPF (None Seen); RBC,URINE 0-3 /HPF (0-3); WBC,URINE 0-3 /HPF (0-3)
[2022-07-02 03:37] LABS: MUCUS,URINE None Seen /LPF (None Seen)
--- NOTE | 2022-07-02 03:40 | NUR ---
SPO2 88% on RA. Pt placed on O2 at 2 LPM/NC and SPO2 improved to 98%. Pt AAOx4, states that she feels better. Even and non-labored respirations, NAD. Family members at bedside. Pt educated on medication compliance.
[2022-07-02] MEDS ORDERED: CARV3.1246 PO (03:58)
[2022-07-02] MEDS ORDERED: CHOL2000 PO (04:01)
--- NOTE | 2022-07-02 04:05 | NUR ---
Medication reconciliation completed with information provided by patient. Any prior medication reconciliation on file was reviewed and corrected.
--- NOTE | 2022-07-02 04:12 | NUR ---
Brooklynn sherman in EDM - 07/02/22 at 0416 by SOTERO Admit bed requested Patient will be admitted to care of [Dr. Valnezuela]. Admitted to unit. Diagnosis Inpatient Observation Orientation concerns or request close to nursing station Covid Status On vent or bipap Isolation requirements Needs a sitter From Home Requires Dialysis Med Rec Completed
--- NOTE | 2022-07-02 04:16 | NUR ---
Admit bed requested Patient will be admitted to care of . Admitted to Tele unit. Diagnosis CHF Exacerbation Inpatient Yes Observation No Orientation concerns or request close to nursing station No Covid Status Negative On vent or bipap No Isolation requirements None Needs a sitter No From Home Yes Requires Dialysis No Med Rec Completed Yes
--- NOTE | 2022-07-02 04:27 | NUR ---
Pt B/P 89/55. Pt's daughter states that pt's baseline SBP runs in the low 90's. ER made aware, no new orders.
--- NOTE | 2022-07-02 05:01 | NUR ---
Patient will be admitted to care of Dr. Valenzuela. Admitted to Tele unit. Will go to room 120B. Belongings list completed. Complete and up to date summary report printed. SBAR report to be given at bedside with opportunity for questions.
[2022-07-02 06:10] VITALS: BP_SYST 101
--- NOTE | 2022-07-02 06:58 | NUR ---
PATIENT WITH CLOTHES ON REFUSED SKIN ASSESSMENT AT THIS TIME. FAMILY AT BEDSIDE, PATIENT RESTING NEED STIMULATION TO AWAKEN AT THIS TIME. NURSE IS ABLE TO AROUSE PATIENT BUT PATIENT DOZES BACK OFF BEFORE ANSWERING QUESTIONS.
--- NOTE | 2022-07-02 07:20 | NUR ---
OPENING NOTE RECEIVED SBAR FROM NIGHT RN. PATIENT IN BED, RESPIRATIONS EVEN, NON LABORED, 2L NASAL CANULA. BED IN LOW AND LOCKED POSITION, CALL LIGHT WITHIN REACH, BED ALARM ON.
--- NOTE | 2022-07-02 07:41 | NUR ---
CONSULTATION PAGED/CALLED Reason for Consultation: [] CHF EXACERBATION Person Who was Notified: [] MANDO Consulting Physician: [] DR HART Tag Stringer Specialty: [] CARDIO Ordering Physician: [] DR KELLY
[2022-07-02 08:00] VITALS: BP_SYST 90
[2022-07-02] MEDS ORDERED: FUROSEMIDE 20 MG TABLET PO ONE (09:00)
[2022-07-02] MEDS ORDERED: FUROSEMIDE 40 MG TABLET PO SCH (09:00)
[2022-07-02] MEDS: SACUBITRIL/VALSARTAN 24 MG-26 MG 1 TABLET PO SCH ×2 (09:04→21:00)
[2022-07-02] MEDS: CARVEDILOL 3.125 MG TABLET (COREG) PO SCH ×2 (09:04→21:00)
[2022-07-02] MEDS: FUROSEMIDE 40 MG/4 ML VIAL IVP SCH (09:05)
--- NOTE | 2022-07-02 09:12 | NUR ---
MD DR HART BEDSIDE EXAMINING PATIENT
--- NOTE | 2022-07-02 09:15 | NUR ---
BP MEDICATION PARAMETERS PER DR HART HOLD BP MEDS IF SYSTOLIC IS BELOW 85
--- NOTE | 2022-07-02 12:40 | NUR ---
bm assisted patient with ambulation to the bathroom for BM. Assisted patient with ambulation back to bed. patient denies any pain or discomfort
[2022-07-02 13:20] VITALS: BP_SYST 87
--- NOTE | 2022-07-02 15:56 | NUR ---
NURSE NOTE PATIENT IN BED, RESPIRATIONS EVEN, NON LABORED, 2L O2 NASAL CANULA, BED IN LOW AND LOCKED POSITION CALL LIGHT WITHIN REACH, DENIES ANY PAIN OR DISCOMFORT
[2022-07-02 18:35] VITALS: BP_SYST 115
--- NOTE | 2022-07-02 19:20 | NUR ---
CLOSING NOTE PROVIDED SBAR TO NIGHT RN. PATIENT IN BED, RESPIRATIONS EVEN, NON LABORED, BED IN LOW AND LOCKED POSITION CALL LIGHT WITHIN REACH. 2L O2 NASAL CANULA, ALLEN DRAINING BY GRAVITY. ENDORSED TO NIGHT RN PATIENT IS REQUESTING HOME O2 AND A BEDSIDE COMMODE. FAMILY BEDSIDE. ENDORSED CARE TO NIGHT RN
[2022-07-02 20:00] VITALS: BP_SYST 70; BP_SYST 83
[2022-07-02] MEDS: ENOXAPARIN SODIUM 30 MG/0.3 ML SYRINGE SUBCUT SCH (21:00)
--- NOTE | 2022-07-02 21:00 | NUR ---
PAGED DOCTOR HART FOR ORDERS
--- NOTE | 2022-07-02 21:25 | NUR ---
PAGED DOCTOR TANNER
--- NOTE | 2022-07-02 21:54 | NUR ---
3RD PAGE PAGED DOCTOR TANNER
--- NOTE | 2022-07-02 22:11 | NUR ---
THIS NURSE SPOKE WITH DR. HART RELATED TO PATIENT BP 83/46, hHR 82, INSTRUCTED TO HOLD COREG 3.125MG AND ENTRESTO 1 TAB AT THIS TIME. PATIENT REFUSED LOVENOX SHE DOESNT WANT IT TONIGHT.
[2022-07-03] VITALS: BP_SYST 91
--- NOTE | 2022-07-03 00:08 | NUR ---
PATIENT IN BED RESTING, FAMILY AT BEDSIDE. PATIENT BP WAS IN THE 80'S WITH FIRST VS CHECK AT 1999. PATIENT WAS GIVEN EDUCATION ON VS AND EDEMA. PATIENT AND FAMILY VERBALIZED UNDERSTANDING. THIS NURSE NOTIFIED DR. HART ABOUT LOW BP AND SCHEDULED HS MEDS FOR PATIENT. MD INSTRUCTED NOT TO GIVE ENTRESTO AND COREG AT HS. PATIENT REFUSED LOVENOX STATING SHE DIDNT WANT IT. THIS NURSE INSTRUCTED PATIENT ON USE OF LOVENOX AND HER NEED FOR IT. PATIENT VSS IMPROVED TO THE SBP IN THE 90'S FOR MIDNIGHT VS. PATIENT CONTINUES TO DENY ALL PAIN AT THIS TIME.
--- NOTE | 2022-07-03 06:01 | NUR ---
PATIENT IN BED RESTING, TV ON, DENIES ALL PAIN AT THIS TIME. PATIENT WAS RELUCTANT TO HAVE SECOND CXR WHEN THE TELECOM BILLING ANALYST CAME IN WITH THE PORTABLE XRAY MACHINE. AFTER EXPLAINING THE PROCESS AND THAT THE PORTABLE USED LESS RADIATION THE PATIENT AGREED TO HAVE CXR. PATIENT VSS.
[2022-07-03 07:02] LABS: BASOPHILS # (AUTO) 0.1 K/uL (0.0-0.2); BASOPHILS % (AUTO) 1.2 % (0.0-2.0); EOSINOPHILS # (AUTO) 0.1 K/uL (0.0-0.4); EOSINOPHILS % (AUTO) 1.6 % (0.0-4.0); HEMATOCRIT 28.4 % (36-48); HEMOGLOBIN 9.4 g/dL (12.0-16.0); LYMPHOCYTES # (AUTO) 0.8 K/uL (1.0-5.5); LYMPHOCYTES % (AUTO) 15.3 % (20.5-51.5); MEAN CORPUSCULAR HEMOGLOBIN 29 pg (27-31); MEAN CORPUSCULAR HGB CONC 33 % (32-36); MEAN CORPUSCULAR VOLUME 87 fL (79.0-98.0); MONOCYTES # (AUTO) 0.5 K/uL (0.0-1.0); MONOCYTES % (AUTO) 9.8 % (1.7-9.3); NEUTROPHILS # (AUTO) 3.8 K/uL (1.8-7.7); NEUTROPHILS % (AUTO) 72.1 % (40.0-70.0); PLATELET COUNT (AUTO) 191 K/uL (130-430); RED BLOOD CELL COUNT(AUTO) 3.27 MIL/uL (4.2-6.2); RED CELL DISTRIBUTION WIDTH 18.1 % (9.0-15.0); WHITE BLOOD COUNT (AUTO) 5.3 K/uL (4.8-10.8)
--- NOTE | 2022-07-03 07:20 | NUR ---
OPENING NOTE PT IN BED, RESPIRATIONS EVEN AND NON-LABORED VIA O2 NC. IV SL REMAIN PATENT AND INTACT. BED IS LOCKED AND AT LOW POSITION. ALLEN CATHETER DRAINING BY GRAVITY. SAFETY PRECAUTION IN PLACED. WILL CONTINUE TO MONITOR
[2022-07-03 08:00] VITALS: BP_SYST 89
[2022-07-03 08:00] LABS: ALANINE AMINOTRANSFERASE 48 U/L (12-78); ALBUMIN 2.8 g/dL (3.4-4.8); ANION GAP 8 (5-15); ASPARTATE AMINOTRANSFERASE 38 U/L (10-37); CALCIUM 8.5 mg/dL (8.4-11.0); CHLORIDE 103 mmol/L (98-107); CREATININE 1.54 mg/dL (0.55-1.30); GLUCOSE 103 mg/dL (70-99); UREA NITROGEN, BLOOD 46 mg/dL (8-21)
[2022-07-03] MEDS: CHOLECALCIFEROL (VITAMIN D3) 2,000 UNIT TABLET PO SCH (08:54)
[2022-07-03] MEDS: FUROSEMIDE 40 MG/4 ML VIAL IVP SCH (08:54)
[2022-07-03] MEDS: CARVEDILOL 3.125 MG TABLET (COREG) PO SCH ×2 (08:58→21:00)
[2022-07-03] MEDS: SACUBITRIL/VALSARTAN 24 MG-26 MG 1 TABLET PO SCH ×2 (08:59→21:00)
--- NOTE | 2022-07-03 10:15 | NUR ---
REMOVAL OF ALLEN CATHETER REMOVED ALLEN CATHETER PER MD'S ORDER. PT TOLERATED WELL
--- NOTE | 2022-07-03 11:30 | NUR ---
REFUSAL OF CXR PT REFUSED TO GET CHEST X-RAY DONE. PT VERBALIZES THAT SHE IS NOT READY. PT SAID SHE WILL LET US KNOW WHEN SHE IS READY. PROVIDED EDUCATION REGARDING THE INDICATION OF CHEST X-RAY. PT VERBALIZED UNDERSTANDING.
[2022-07-03 12:23] VITALS: BP_SYST 93
--- NOTE | 2022-07-03 14:00 | NUR ---
CXR DONE CHEST X-RAY DONE.
[2022-07-03 16:00] VITALS: BP_SYST 90
--- NOTE | 2022-07-03 17:00 | NUR ---
NOTES PT CONTINUE ON OXYGEN 2L VIA NC. BEDSIDE COMMODE PLACED. FAMILY AT BEDSIDE.
--- NOTE | 2022-07-03 17:25 | NUR ---
CLOSING NOTE PT IN BED, RESPIRATIONS EVEN AND NON-LABORED VIA O2 NC. IV SL REMAIN PATENT AND INTACT. BED IS LOCKED AND AT LOW POSITION. SAFETY PRECAUTION IN PLACED. ENDORSED CITY MANAGER REGARDING POSSIBLE BREATHING TREATMENT. ENDORSED CARE
[2022-07-03 20:00] VITALS: BP_SYST 78; BP_SYST 90
[2022-07-03] MEDS: ENOXAPARIN SODIUM 30 MG/0.3 ML SYRINGE SUBCUT SCH (21:00)
[2022-07-04] MEDS: SACUBITRIL/VALSARTAN 24 MG-26 MG 1 TABLET PO SCH ×2 (00:35→09:00)
[2022-07-04 04:03] VITALS: BP_SYST 97
[2022-07-04 06:42] LABS: BASOPHILS # (AUTO) 0.1 K/uL (0.0-0.2); BASOPHILS % (AUTO) 1.4 % (0.0-2.0); EOSINOPHILS # (AUTO) 0.2 K/uL (0.0-0.4); EOSINOPHILS % (AUTO) 3.9 % (0.0-4.0); HEMOGLOBIN 9.9 g/dL (12.0-16.0); LYMPHOCYTES % (AUTO) 17.1 % (20.5-51.5); MEAN CORPUSCULAR HEMOGLOBIN 29 pg (27-31); MEAN CORPUSCULAR HGB CONC 33 % (32-36); MEAN CORPUSCULAR VOLUME 87 fL (79.0-98.0); MONOCYTES # (AUTO) 0.7 K/uL (0.0-1.0); MONOCYTES % (AUTO) 11.8 % (1.7-9.3); NEUTROPHILS # (AUTO) 3.7 K/uL (1.8-7.7); NEUTROPHILS % (AUTO) 65.8 % (40.0-70.0); PLATELET COUNT (AUTO) 207 K/uL (130-430); RED BLOOD CELL COUNT(AUTO) 3.46 MIL/uL (4.2-6.2); WHITE BLOOD COUNT (AUTO) 5.6 K/uL (4.8-10.8)
--- NOTE | 2022-07-04 07:30 | NUR ---
TRANSFER: PATIENT IS RESTING IN BED QUIETLY. PATIENT IS AAOX4 ABLE TO MAKE NEEDS KNOWN. AMBULATE WITH MINIMAL ASSIST TO THE BEDSIDE COMMODE. SOB ON EXERTION ON 2L NC 02 SAT 97%. EXPLAINED POC AND PATIENT VERBALIZED UNDERSTANDING. BED IN LOW AND LOCK POSITION. CALL LIGHT AND BEDSIDE TABLE WITHIN REACH. STABLE CONDITION AT THIS TIME. Addendum: 07/04/22 at 1725 by Twenty two PALLAVI Gavin RN OPENING NOTES
[2022-07-04 07:59] LABS: ALANINE AMINOTRANSFERASE 44 U/L (12-78); ALBUMIN 2.7 g/dL (3.4-4.8); ANION GAP 11 (5-15); ASPARTATE AMINOTRANSFERASE 31 U/L (10-37); CALCIUM 8.3 mg/dL (8.4-11.0); CHLORIDE 103 mmol/L (98-107); GLUCOSE 92 mg/dL (70-99); POTASSIUM 4.5 mmol/L (3.5-5.1); UREA NITROGEN, BLOOD 48 mg/dL (8-21)
[2022-07-04 08:00] VITALS: BP_SYST 98
[2022-07-04] MEDS: CARVEDILOL 3.125 MG TABLET (COREG) PO SCH ×2 (09:00→23:02)
[2022-07-04] MEDS: CHOLECALCIFEROL (VITAMIN D3) 2,000 UNIT TABLET PO SCH (09:11)
[2022-07-04] MEDS: FUROSEMIDE 40 MG/4 ML VIAL IVP SCH (09:12)
--- NOTE | 2022-07-04 09:14 | NUR ---
HELD BP MEDS: BP 101/48, HR 82. WILL MONITOR.
[2022-07-04] MEDS ORDERED: metOLazone 5 MG TABLET PO ONE (11:30)
--- NOTE | 2022-07-04 12:28 | NUR ---
Attending Md Dr Key (oncall sharon Valenzuela) was called, Re: to inform Xray results. Spoke to Meg.
[2022-07-04 14:24] VITALS: BP_SYST 99
[2022-07-04 17:05] VITALS: BP_SYST 93
--- NOTE | 2022-07-04 17:25 | NUR ---
OPENING NOTES: PATIENT IS RESTING IN BED AWAKE AND AGITATED. PATIENT IS AAOX2 TO PERSON AND PLACE WITH CONFUSION AND EPISODE OF FORGETFULNESS. ABLE TO MAKE NEEDS KNOWN. NO ADDITIONAL DISTRESS OR PAIN NOTED. EXPLAINED POC BUT PATIENT IS CONFUSED AND COULD NOT VERBALIZED UNDERSTANDING. NEED EDUCATIONAL REINFORCEMENT. B SOFT WRIST RESTRAINTS ON. BED IN LOW AND LOCK POSITION. BED ALARM AND ROOM VIDEO MONITOR ON. CALL LIGHT WITHIN REACH. STABLE CONDITION AT THIS TIME. Addendum: 07/04/22 at 1729 by [facility], PALLAVI OLIVO WRONG PATIENT
--- NOTE | 2022-07-04 18:42 | NUR ---
CLOSING NOTES: PATIENT IS RESTING IN BED CHIT CHATTING WITH HER FAMILY MEMBERS AT THE BEDSIDE. NO ADDITIONAL DISTRESS OR PAIN NOTED. ALL NEEDS MET. STABLE CONDITION AT THIS TIME.
[2022-07-04 20:00] VITALS: BP_SYST 93
[2022-07-04] MEDS: ENOXAPARIN SODIUM 30 MG/0.3 ML SYRINGE SUBCUT SCH (22:00)
[2022-07-04 22:25] VITALS: BP_SYST 106
--- NOTE | 2022-07-04 22:45 | NUR ---
Spoke with Dr. Delarosa via phone. NOtified physician that patient is experiencing on and off again shortness of breath; however, last episode 15 minutes ago was worst. Pt fluctuates between 92-100% on room air. Also updated shipping and receiving specialist on recent vitals on this [facility] shift [facility]. (See vital sign section for specifics). Pt recently placed on 3 liters nasal cannula. Received order to admin 20mg lasix ivp one time dose now and to admin scheduled coreg now. Recheck blood pressure in an hour and if sbp is higher than 95 admin Entresto. Updated charge nurse on patient's situation and interaction with shipping and receiving specialist
[2022-07-04] MEDS ORDERED: FUROSEMIDE 20 MG/2 ML VIAL IVP ONE (23:00)
[2022-07-05] VITALS (9 sets, daily range): BP systolic 87–119
--- NOTE | 2022-07-05 00:47 | NUR ---
Spoke with Dr. Key covering provider regarding patient's maintained anxiety and shortness of breath complaints. NOtified provider of discussion had earlier with consulted surgery scheduler and his orders. Updated covering provider of patient's recent vitals and received new orders. Both daughters and boyfriend have been at bedside since 2129 on 07/04/22. After patient's family exited room by my request for 10 minutes, patient was noted to be more independent with strength and voicing concerns; however, pt appeared to still be short of breath and anxious. Received order to admin 1 time dose of xanax and pulmonology consult and chest x-ray this morning.
--- NOTE | 2022-07-05 00:56 | NUR ---
Updated family on plan of care.
[2022-07-05] MEDS ORDERED: ALPRAZolam 0.25 MG TABLET PO ONE (01:00)
--- NOTE | 2022-07-05 02:00 | NUR ---
Family has left patient's room. Pt resting in bed sitting up with eyes closed. Asleep. 3 liter's nasal cannula o2 intact. Resp even and unlabored. RR 18.
--- NOTE | 2022-07-05 02:08 | NUR ---
CONSULTATION CALLED FOR DR. Alma Delia THOMPSON FOR CONSULT OF SHORTNESS OF BREATH ORDER BY DR. JERAMY WATERS WITH ARLYN
[2022-07-05 06:51] LABS: ANION GAP 9 (5-15); CALCIUM 8.1 mg/dL (8.4-11.0); CHLORIDE 103 mmol/L (98-107); CREATININE 1.64 mg/dL (0.55-1.30); GLUCOSE 110 mg/dL (70-99); POTASSIUM 4.1 mmol/L (3.5-5.1); UREA NITROGEN, BLOOD 50 mg/dL (8-21)
[2022-07-05 07:03] LABS: BASOPHILS % (AUTO) 0.6 % (0.0-2.0); HEMATOCRIT 27.5 % (36-48); HEMOGLOBIN 9.3 g/dL (12.0-16.0); LYMPHOCYTES # (AUTO) 0.5 K/uL (1.0-5.5); MEAN CORPUSCULAR HEMOGLOBIN 29 pg (27-31); MEAN CORPUSCULAR HGB CONC 34 % (32-36); MEAN CORPUSCULAR VOLUME 87 fL (79.0-98.0); MONOCYTES # (AUTO) 0.7 K/uL (0.0-1.0); NEUTROPHILS # (AUTO) 4.7 K/uL (1.8-7.7); NEUTROPHILS % (AUTO) 79.4 % (40.0-70.0); PLATELET COUNT (AUTO) 195 K/uL (130-430); RED BLOOD CELL COUNT(AUTO) 3.17 MIL/uL (4.2-6.2); RED CELL DISTRIBUTION WIDTH 17.8 % (9.0-15.0)
--- NOTE | 2022-07-05 07:30 | NUR ---
OPENING NOTES: PATIENT IS RESTING IN BED QUIETLY. PATIENT IS AAOX4 ABLE TO MAKE NEEDS KNOWN. AMBULATE WITH MINIMAL ASSIST TO THE BEDSIDE COMMODE. SOB ON EXERTION ON 2.5L NC 02 SAT 94%. EXPLAINED POC AND PATIENT VERBALIZED UNDERSTANDING. BED IN LOW AND LOCK POSITION. CALL LIGHT AND BEDSIDE TABLE WITHIN REACH. STABLE CONDITION AT THIS TIME.
[2022-07-05] MEDS: SACUBITRIL/VALSARTAN 24 MG-26 MG 1 TABLET PO SCH ×2 (09:00→20:51)
[2022-07-05] MEDS: CARVEDILOL 3.125 MG TABLET (COREG) PO SCH ×2 (09:00→20:51)
[2022-07-05] MEDS: CHOLECALCIFEROL (VITAMIN D3) 2,000 UNIT TABLET PO SCH (09:00)
--- NOTE | 2022-07-05 09:00 | NUR ---
HELD AM BP MEDS: BP LOW 90/55. HELD COREG AND ENTRESTO. WILL MAKE DR HART AWARE.
--- NOTE | 2022-07-05 11:20 | NUR ---
BP MEDICATION PARAMETERS: DR HART AT THE NURSES STATION AND MADE AWARE OF LOW BLOOD PRESSURE TREND. PER , OKAY TO GIVE COREG WHEN SBP IS 85<, OKAY TO GIVEN LUIS WHEN SBP IS 90<, AND MAY GIVE LASIX AT NO SBP PARAMETER. WILL GIVE LASIX FIRST AND REASSESS BP BEFORE GIVEN COREG AND/OR LUIS. PATIENT IS ASYMPTOMATIC. NO ADDITIONAL DISTRESS NOTED. Addendum: 07/05/22 at 1347 by [facility], PALLAVI OLIVO ENTRESTO
[2022-07-05] MEDS: FUROSEMIDE 40 MG/4 ML VIAL IVP SCH (11:23)
--- NOTE | 2022-07-05 15:50 | NUR ---
OPENING NOTES: PATIENT IS RESTING IN BED QUIETLY. PATIENT IS AAOX4 ABLE TO MAKE NEEDS KNOWN. AMBULATE WITH MINIMAL ASSIST TO THE BEDSIDE COMMODE. SOB ON EXERTION ON 2.5L NC 02 SAT 94%. EXPLAINED POC AND PATIENT VERBALIZED UNDERSTANDING. BED IN LOW AND LOCK POSITION. CALL LIGHT AND BEDSIDE TABLE WITHIN REACH. STABLE CONDITION AT THIS TIME. Addendum: 07/05/22 at 1843 by Twenty two PALLAVI Gavin RN WRONG TIME
--- NOTE | 2022-07-05 19:30 | NUR ---
Opening note Received report from day shift. Pt is awake sitting up in bed with multiple family members sitting at bedside. No c/o of SOB, on 3L nasal cannula. No s/s of acute distress. IV site intact and patent. Fall and safety precautions in place with bed in lowest position, bed alarm on, and call light within reach
[2022-07-05] MEDS: ENOXAPARIN SODIUM 30 MG/0.3 ML SYRINGE SUBCUT SCH (21:45)
[2022-07-06 01:27] VITALS: BP_SYST 99
--- NOTE | 2022-07-06 07:15 | NUR ---
OPENING NOTE RECEIVED SBAR FROM NIGHT RN. PATIENT IN BED, EYES CLOSED, RESPIRATIONS EVEN, NON LABORED, BED IN LOW AND LOCKED POSITION CALL LIGHT WITHIN REACH.
[2022-07-06 08:00] VITALS: BP_SYST 86
[2022-07-06 08:20] LABS: BASOPHILS # (AUTO) 0.1 K/uL (0.0-0.2); BASOPHILS % (AUTO) 1.2 % (0.0-2.0); EOSINOPHILS # (AUTO) 0.1 K/uL (0.0-0.4); EOSINOPHILS % (AUTO) 2.6 % (0.0-4.0); HEMOGLOBIN 9.4 g/dL (12.0-16.0); LYMPHOCYTES # (AUTO) 0.7 K/uL (1.0-5.5); MEAN CORPUSCULAR HEMOGLOBIN 29 pg (27-31); MEAN CORPUSCULAR HGB CONC 34 % (32-36); MEAN CORPUSCULAR VOLUME 86 fL (79.0-98.0); MONOCYTES # (AUTO) 0.7 K/uL (0.0-1.0); MONOCYTES % (AUTO) 13.1 % (1.7-9.3); NEUTROPHILS % (AUTO) 70.1 % (40.0-70.0); PLATELET COUNT (AUTO) 217 K/uL (130-430); RED BLOOD CELL COUNT(AUTO) 3.25 MIL/uL (4.2-6.2); WHITE BLOOD COUNT (AUTO) 5.6 K/uL (4.8-10.8)
--- NOTE | 2022-07-06 08:41 | NUR ---
BP INFORMED DR. TANNER CONTRERAS LOW BP PER DR HERNDON BP MEDS
[2022-07-06] MEDS: CHOLECALCIFEROL (VITAMIN D3) 2,000 UNIT TABLET PO SCH (08:51)
[2022-07-06] MEDS: FUROSEMIDE 40 MG/4 ML VIAL IVP SCH (08:52)
[2022-07-06] MEDS: CARVEDILOL 3.125 MG TABLET (COREG) PO SCH (08:52)
[2022-07-06] MEDS: SACUBITRIL/VALSARTAN 24 MG-26 MG 1 TABLET PO SCH (08:53)
[2022-07-06 09:01] LABS: ALANINE AMINOTRANSFERASE 34 U/L (12-78); ALBUMIN 2.6 g/dL (3.4-4.8); ANION GAP 10 (5-15); ASPARTATE AMINOTRANSFERASE 18 U/L (10-37); CALCIUM 8.2 mg/dL (8.4-11.0); CHLORIDE 102 mmol/L (98-107); CREATININE 1.53 mg/dL (0.55-1.30); GLUCOSE 87 mg/dL (70-99); POTASSIUM 3.5 mmol/L (3.5-5.1); TOTAL BILIRUBIN 0.9 mg/dL (0.0-1.0); UREA NITROGEN, BLOOD 50 mg/dL (8-21)
[2022-07-06 11:31] VITALS: BP_SYST 89
[2022-07-06 16:52] VITALS: BP_SYST 89
[2022-07-06 16:56] VITALS: BP_SYST 88
--- NOTE | 2022-07-06 17:20 | NUR ---
D/C Patient Patient given medication reconciliation form and D/C instructions. Exit Care provided. Patient verbalized understanding. MD discussed with patient the results and treatment provided. Ambulatory with steady gait for discharge to home. Patient in stable condition, ID band removed. IV catheter removed, intact and dressing applied, no active bleeding. Rx for bedside comode given. Patient educated on pain management. All belongings sent with patient. appointment made with DR Delarosa on [id number]. wheeled pt out via wheelchair to a waiting car.
--- NOTE | 2022-07-07 08:19 | NUR ---
Dispo code 01
== END 2022-07-06 17:10 | disposition home or self-care (01) | DRG 291 ==
LOC: SED 00:05 → STU 04:05
PROVIDERS: ADMIT Family Medicine; ATTEND Family Medicine
PROC: 5A09357 Assistance with Respiratory Ventilation, Less than 24 Consecutive Hours, Continuous Positive Airway Pressure (ICD-10-PCS; principal; 2022-07-02)
DX: I13.0 Hypertensive heart and chronic kidney disease with heart failure and stage 1 through stage 4 chronic kidney disease, or unspecified chronic kidney disease (principal); I50.43 Acute on chronic combined systolic (congestive) and diastolic (congestive) heart failure; J96.01 Acute respiratory failure with hypoxia; I42.9 Cardiomyopathy, unspecified; I42.0 Dilated cardiomyopathy; M17.0 Bilateral primary osteoarthritis of knee; D64.9 Anemia, unspecified; E78.2 Mixed hyperlipidemia; F41.9 Anxiety disorder, unspecified; I25.5 Ischemic cardiomyopathy; I34.0 Nonrheumatic mitral (valve) insufficiency; N18.2 Chronic kidney disease, stage 2 (mild); E87.5 Hyperkalemia; I95.89 Other hypotension; Z79.899 Other long term (current) drug therapy; Z91.14 Patient's other noncompliance with medication regimen; Z88.0 Allergy status to penicillin; Z88.8 Allergy status to other drugs, medicaments and biological substances; Z88.5 Allergy status to narcotic agent
CPT/HCPCS: 36415; 71045; 71046-TC; 80048; 80053; 81000; 82272; 83735; 83880; 84484; 85025; 93005; 94660; 96374; 99291; G0378; J1650; J1940